=== PATIENT | female | born 1945 | race Two or more races ===

== ENCOUNTER 2020-06-23 12:17 | Inpatient (IN) | payer MEDICARE, OTHER ==
[2020-06-23] MEDS ORDERED: ACETAMINOPHEN TAB 500 MG TAB PO STA (13:13)
--- NOTE | 2020-06-23 13:20 | ED ---
Fever HPI - General Chief Complaint: Fever Stated Complaint: COVID testing Time Seen by Provider: 06/23/20 12:40 Source: patient, family, RN notes reviewed Mode of arrival: wheelchair Limitations: no limitations - History of Present Illness Initial Comments: 75-year-old female diagnosed with Covid 19 6 days ago who presents with complaints of chest pain shortness of breath cough perhaps some body aches. Negative better over time. History of a lung nodule recently. No other current complaints MD Complaint: fever, weakness, other - Related Data Allergies Allergy/AdvReac Type Severity Reaction Status Date / Time latex Allergy Rash/Hives Verified 06/23/20 12:35 Review of Systems ROS Statement: Those systems with pertinent positive or pertinent negative responses have been documented in the HPI. ROS Other: All systems not noted in ROS Statement are negative. Past Medical History Past Medical History: Cancer, CVA/TIA, Hypertension Additional Past Medical History / Comment(s): CKD Past Surgical History: Heart Catheterization With Stent Additional Past Surgical History / Comment(s): thyroid,PVD General Exam - General Exam Comments Initial Comments: this is a well-developed well-nourished awake alert oriented 3 female Limitations: no limitations General appearance: alert, anxious Head exam: Present: atraumatic, normocephalic, normal inspection Eye exam: Present: normal appearance, PERRL, EOMI. Absent: scleral icterus, conjunctival injection, periorbital swelling ENT exam: Present: normal exam, mucous membranes moist Neck exam: Present: normal inspection, full ROM, other (no stridor JVD or bruits). Absent: tenderness, meningismus, lymphadenopathy Respiratory exam: Present: normal lung sounds bilaterally. Absent: respiratory distress, wheezes, rales, rhonchi, stridor Cardiovascular Exam: Present: regular rate, normal rhythm, normal heart sounds. Absent: systolic murmur, diastolic murmur, rubs, gallop, clicks GI/Abdominal exam: Present: soft, normal bowel sounds. Absent: distended, tenderness, guarding, rebound, rigid Extremities exam: Present: normal inspection, full ROM, normal capillary refill. Absent: tenderness, pedal edema, joint swelling, calf tenderness Back exam: Present: normal inspection Neurological exam: Present: alert, oriented X3, CN II-XII intact Psychiatric exam: Present: normal affect, normal mood Skin exam: Present: warm, dry, intact, normal color. Absent: rash Course Vital Signs 06/23/20 06/23/20 12:30 14:16 Temperature 101.5 F H 99.8 F H Pulse Rate 70 70 Respiratory 18 18 Rate Blood Pressure 123/69 121/59 O2 Sat by Pulse 96 95 Oximetry Medical Decision Making - Medical Decision Making I did discuss findings with patient and family members patient will be admitted and family requested Dr. Curiel - Lab Data Result diagrams: 06/23/20 13:41 06/23/20 13:41 Lab Results 06/23/20 06/23/20 06/23/20 Range/Units 13:41 13:41 13:41 WBC 5.4 (3.8-10.6) k/uL RBC 5.22 (3.80-5.40) m/uL Hgb 14.7 (11.4-16.0) gm/dL Hct 45.1 (34.0-46.0) % MCV 86.3 (80.0-100.0) fL MCH 28.2 (25.0-35.0) pg MCHC 32.7 (31.0-37.0) g/dL RDW 13.8 (11.5-15.5) % Plt Count 259 (150-450) k/uL Neutrophils % 71 % Lymphocytes % 20 % Monocytes % 7 % Eosinophils % 0 % Basophils % 1 % Neutrophils # 3.8 (1.3-7.7) k/uL Lymphocytes # 1.1 (1.0-4.8) k/uL Monocytes # 0.4 (0-1.0) k/uL Eosinophils # 0.0 (0-0.7) k/uL Basophils # 0.0 (0-0.2) k/uL PT 9.4 (9.0-12.0) sec INR 0.9 (<1.2) APTT 22.2 (22.0-30.0) sec D-Dimer 0.34 (<0.60) mg/L FEU Sodium 140 (137-145) mmol/L Potassium 3.6 (3.5-5.1) mmol/L Chloride 101 (98-107) mmol/L Carbon Dioxide 29 (22-30) mmol/L Anion Gap 10 mmol/L BUN 15 (7-17) mg/dL Creatinine 0.62 (0.52-1.04) mg/dL Est GFR (CKD-EPI)AfAm >90 (>60 ml/min/1.73 sqM) Est GFR (CKD-EPI)NonAf 87 (>60 ml/min/1.73 sqM) Glucose 97 (74-99) mg/dL Plasma Lactic Acid Rex (0.7-2.0) mmol/L Calcium 9.5 (8.4-10.2) mg/dL Magnesium 2.0 (1.6-2.3) mg/dL Total Bilirubin 0.7 (0.2-1.3) mg/dL AST 29 (14-36) U/L ALT 19 (4-34) U/L Alkaline Phosphatase 62 (38-126) U/L Lactate Dehydrogenase 487 (313-618) U/L C-Reactive Protein 12.6 H (<10.0) mg/L Total Protein 7.4 (6.3-8.2) g/dL Albumin 4.3 (3.5-5.0) g/dL Influenza Type A RNA (Not Detectd) Influenza Type B (PCR) (Not Detectd) 06/23/20 06/23/20 Range/Units 13:41 13:56 WBC (3.8-10.6) k/uL RBC (3.80-5.40) m/uL Hgb (11.4-16.0) gm/dL Hct (34.0-46.0) % MCV (80.0-100.0) fL MCH (25.0-35.0) pg MCHC (31.0-37.0) g/dL RDW (11.5-15.5) % Plt Count (150-450) k/uL Neutrophils % % Lymphocytes % % Monocytes % % Eosinophils % % Basophils % % Neutrophils # (1.3-7.7) k/uL Lymphocytes # (1.0-4.8) k/uL Monocytes # (0-1.0) k/uL Eosinophils # (0-0.7) k/uL Basophils # (0-0.2) k/uL PT (9.0-12.0) sec INR (<1.2) APTT (22.0-30.0) sec D-Dimer (<0.60) mg/L FEU Sodium (137-145) mmol/L Potassium (3.5-5.1) mmol/L Chloride (98-107) mmol/L Carbon Dioxide (22-30) mmol/L Anion Gap mmol/L BUN (7-17) mg/dL Creatinine (0.52-1.04) mg/dL Est GFR (CKD-EPI)AfAm (>60 ml/min/1.73 sqM) Est GFR (CKD-EPI)NonAf (>60 ml/min/1.73 sqM) Glucose (74-99) mg/dL Plasma Lactic Acid Rex 1.6 (0.7-2.0) mmol/L Calcium (8.4-10.2) mg/dL Magnesium (1.6-2.3) mg/dL Total Bilirubin (0.2-1.3) mg/dL AST (14-36) U/L ALT (4-34) U/L Alkaline Phosphatase (38-126) U/L Lactate Dehydrogenase (313-618) U/L C-Reactive Protein (<10.0) mg/L Total Protein (6.3-8.2) g/dL Albumin (3.5-5.0) g/dL Influenza Type A RNA Not Detected (Not Detectd) Influenza Type B (PCR) Not Detected (Not Detectd) - EKG Data -: EKG Interpreted by Nh EKG shows normal: sinus rhythm, axis, intervals, QRS complexes, ST-T waves Rate: normal EKG Comments: Was sinus rhythm of 80. Interval 154 QRS 90 QT since QTC 344/[address]-T wave changes - Radiology Data Radiology results: report reviewed (Imaging reviewed evidence of a left lower lobe infiltrate versus atelectasis), image reviewed Disposition Clinical Impression: COVID-19, Left lower lobe pneumonia, Febrile illness, acute Disposition: ADMITTED IP TO THIS [facility] Condition: Fair Referrals: None,Stated [REFERRING] - 1-2 days
[2020-06-23 13:55] LABS: Basophils % (A) 1 %; Eosinophils % (A) 0 %; HCT 45.1 % (34.0-46.0); HGB 14.7 gm/dL (11.4-16.0); Lymphocytes # (A) 1.1 k/uL (1.0-4.8); Lymphocytes % (A) 20 %; MCH 28.2 pg (25.0-35.0); MCHC 32.7 g/dL (31.0-37.0); MCV 86.3 fL (80.0-100.0); Mean Platelet Volume 7.2; Monocytes # (A) 0.4 k/uL (0-1.0); Monocytes % (A) 7 %; Neutrophils # (A) 3.8 k/uL (1.3-7.7); Neutrophils % (A) 71 %; Platelet Count 259 k/uL (150-450); RBC 5.22 m/uL (3.80-5.40); RDW 13.8 % (11.5-15.5); WBC 5.4 k/uL (3.8-10.6)
[2020-06-23 14:09] LABS: D-Dimer 0.34 mg/L FEU (<0.60); INR 0.9 (<1.2); Partial Thromboplastin Time 22.2 sec (22.0-30.0); Prothrombin Time 9.4 sec (9.0-12.0)
[2020-06-23 14:17] LABS: ALT 19 U/L (4-34); AST 29 U/L (14-36); African American GFR (CKD) >90 (>60 ml/min/1.73 sqM); Albumin 4.3 g/dL (3.5-5.0); Alkaline Phosphatase 62 U/L (38-126); Anion Gap 10 mmol/L; Blood Urea Nitrogen 15 mg/dL (7-17); C Reactive Protein 12.6 mg/L (<10.0); Calcium 9.5 mg/dL (8.4-10.2); Carbon Dioxide 29 mmol/L (22-30); Chloride 101 mmol/L (98-107); Glucose 97 mg/dL (74-99); LDH 487 U/L (313-618); Non-African American GFR(CKD) 87 (>60 ml/min/1.73 sqM); Potassium 3.6 mmol/L (3.5-5.1); Sodium 140 mmol/L (137-145); Total Bilirubin 0.7 mg/dL (0.2-1.3); Total Protein 7.4 g/dL (6.3-8.2)
--- NOTE | 2020-06-23 14:20 | XR ---
EXAMINATION TYPE: XR chest 1V portable DATE OF EXAM: 06/23/2020 COMPARISON: NONE HISTORY: Cough, shortness of breath, and fever. TECHNIQUE: Single AP portable frontal upright view of the chest is obtained. FINDINGS: There is reticular interstitial prominence bilaterally with perhaps patchy left basilar op acity. No pleural effusion or pneumothorax seen bilaterally. The cardiac silhouette size is mildly e nlarged with atherosclerotic aorta. The osseous structures are demineralized. IMPRESSION: Cardiomegaly with suspected chronic parenchymal changes and perhaps patchy left basilar acute atelectasis and/or infiltrate. Correlate clinically. Correlation with old outside x-ray would b e beneficial.
[2020-06-23] MEDS ORDERED: ACETAMINOPHEN TAB 325 MG TAB PO PRN (14:52)
[2020-06-23] MEDS ORDERED: NALOXONE 0.4 MG/ML 1 ML VIAL IV PRN (14:52)
[2020-06-23] MEDS: SODIUM CHLORIDE 0.9% 1,000 ML IV SCH (15:08)
[2020-06-23] MEDS ORDERED: DEXAMETHASONE SOD PHOSPHATE 4 MG/ML 1 ML VIAL IV SCH (18:00)
[2020-06-23] MEDS ORDERED: dexAMETHasone 2 MG TAB PO SCH (18:15)
--- NOTE | 2020-06-23 18:21 | P.CNPUL ---
History of Present Illness Consult date: 06/23/20 Reason for consult: dyspnea, cough History of present illness: 75-year-old here patient with a previous history of thyroid cancer post-thyroidectomy was being also evaluated for left lower lobe pulmonary nodule. As the patient was being investigated she became sick and the patient started having sweats, chills, fever, body aches, and vague lower abdominal pain. Over the past 24-48 hours she started experiencing some chest aching, worsening dyspnea and cough and for that reason the patient was brought into the hospital. Noted the patient was confirmed to have COVID 19 infection approximately 6 days ago. White cell count is at 5.4. He will was 14.7. Correlation profile is within normal. D-dimer is at 0.34. Renal function is stable. C-reactive protein at 12.6. Chest x-ray showing a limited left basilar infiltrate along with some cardiomegaly. Pulse ox on room air is around 95-96%. She has a temperature of 101.5. Review of Systems Constitutional: Reports chills, Reports fatigue, Reports fever, Reports night sweats Eyes: denies as per HPI, denies blurred vision, denies bulging eye, denies decreased vision, denies diplopia, denies discharge, denies dry eye, denies irritation, denies itching, denies pain, denies photophobia, denies loss of peripheral vision, denies loss of vision, denies tunnel vision/blind spots Ears: deny: decreased hearing, ear discharge, earache, tinnitus Ears, nose, mouth and throat: Reports as per HPI Breasts: absent: as per HPI, change in shape, gynecomastia, masses, nipple discharge, pain, skin changes, swelling Cardiovascular: Reports dyspnea on exertion Respiratory: Reports cough, Reports dyspnea Gastrointestinal: Reports as per HPI Genitourinary: Reports as per HPI Menstruation: Reports as per HPI Musculoskeletal: Reports as per HPI Musculoskeletal: absent: ankle pain, ankle stiffness, ankle swelling Integumentary: Reports as per HPI Neurological: Reports as per HPI, Reports weakness Psychiatric: Reports as per HPI Endocrine: Reports as per HPI, Reports fatigue Hematologic/Lymphatic: Reports as per HPI Allergic/Immunologic: Reports as per HPI Past Medical History Past Medical History: Cancer, GERD/Reflux, Hyperlipidemia, Hypertension, Osteoarthritis (OA) Additional Past Medical History / Comment(s): Thyroid cancer with surgery, vertigo at times, arthritis in multiple joints History of Any Multi-Drug Resistant Organisms: None Reported Past Surgical History: Appendectomy, Cholecystectomy, Hysterectomy Additional Past Surgical History / Comment(s): Thyroidectomy, colonoscopy, bilateral cataracts/lens implants. Past Anesthesia/Blood Transfusion Reactions: No Reported Reaction Smoking Status: Never smoker - Past Family History Father Family Medical History: No Reported History Additional Family Medical History / Comment(s): Father was healthy Mother Additional Family Medical History / Comment(s): Mother young from surgical complications. Medications and Allergies Home Medications Medication Instructions Recorded Confirmed Type Diclofenac Sodium Gel [Voltaren 2 gm TOPICAL BID PRN 06/23/20 06/23/20 History Gel] Dicyclomine [Bentyl] 10 mg PO AC-BID PRN 06/23/20 06/23/20 History Fluticasone Nasal [place] [Flonase 2 spr EA NOSTRIL DAILY PRN 06/23/20 06/23/20 History Nasal [place]] Hydrocortisone [Anusol-Hc] 0.5 gm RECTAL BID PRN 06/23/20 06/23/20 History Levothyroxine Sodium 100 mcg PO DAILY 06/23/20 06/23/20 History Omeprazole 20 mg PO DAILY 06/23/20 06/23/20 History Rosuvastatin [Crestor] 10 mg PO HS 06/23/20 06/23/20 History amLODIPine [Norvasc] 10 mg PO DAILY 06/23/20 06/23/20 History Allergies Allergy/AdvReac Type Severity Reaction Status Date / Time latex Allergy Rash/Hives Verified 06/23/20 15:09 Physical Exam Vitals: Vital Signs Temp Pulse Resp BP Pulse Ox 06/23/20 14:16 99.8 F H 70 18 121/59 95 06/23/20 12:30 101.5 F H 70 18 123/69 96 Intake and Output 06/23/20 06/23/20 06/23/20 06:59 14:59 22:59 Other: Weight 92.533 kg 92.533 kg The patient appeared well nourished and normally developed. Vital signs as documented. Head exam is unremarkable. No scleral icterus or corneal arcus noted. Neck is without jugular venous distension, thyromegaly, or carotid bruits. Carotid upstrokes are brisk bilaterally. Lungs are clear to auscultation and percussion. Cardiac exam reveals the PMI to be normally sized and situated. Rhythm is regular. First and second heart sounds normal. No murmurs, rubs or gallops. Abdominal exam reveals normal bowel sounds, no masses, no organomegaly and no aortic enlargement. Extremities are nonedematous and both femoral and pedal pulses are normal.Neurologically, the patient is awake and alert and the patient does not have any focal neurological deficit. Cranial nerves are essentially intact.Examination of the skin revealed no evidence of significant rashes, suspicious appearing nevi or other concerning lesions. Results - Laboratory Findings CBC and BMP: 06/23/20 13:41 06/23/20 13:41 PT/INR, D-dimer PT 9.4 sec (9.0-12.0) 06/23/20 13:41 INR 0.9 (<1.2) 06/23/20 13:41 D-Dimer 0.34 mg/L FEU (<0.60) 06/23/20 13:41 Abnormal lab findings: Abnormal Labs 06/23/20 13:41 C-Reactive Protein 12.6 H - Diagnostic Findings Chest x-ray: image reviewed Assessment and Plan Plan: 1 acute Covid 19 pneumonia with secondary dyspnea cough 2 acute hypoxic respiratory failure current pulse ox is around 95-96% 3 acute febrile illness secondary to above 4 hypothyroidism 5 hypertension 6 hyperlipidemia 7 osteoarthritis 8 thyroid cancer and previous thyroidectomy 9 left lower lobe pulmonary nodules, under investigation for metastatic disease Plan We will initiate treatment with melatonin, Pepcid, zinc sulfate, we will offer Lovenox DVT prophylaxis with 40 mg subcu heparin and will put the patient on Decadron 6mg by mouth daily in addition to 5 day course of Remdesivir per protocol and will continue to follow. Overall condition is stable for now. IV hydration. Resume home medications.
[2020-06-23] MEDS ORDERED: dexAMETHasone 2 MG TAB PO ONE (19:00)
[2020-06-23] MEDS ORDERED: REMDESIVIR (EUA) 200 MG in SODIUM CHLORIDE 0.9% 250 ML IVPB ONE (20:00)
[2020-06-23] MEDS: ZINC SULFATE 220 MG CAP PO SCH (20:46)
[2020-06-23] MEDS: ATORVASTATIN 20 MG TAB PO SCH (20:46)
[2020-06-23] MEDS: ASCORBIC ACID 500 MG TAB PO SCH (20:47)
[2020-06-23] MEDS: ENOXAPARIN 40 MG/0.4 ML SYRINGE SQ SCH (20:47)
[2020-06-23] MEDS: MELATONIN 1 MG TAB PO SCH (20:48)
[2020-06-23 23:02] LABS: Ferritin 108.5 ng/mL (10.0-291.0)
[2020-06-24] MEDS: SODIUM CHLORIDE 0.9% 1,000 ML IV SCH ×2 (03:32→16:12)
[2020-06-24] MEDS: LEVOTHYROXINE 100 MCG TAB PO SCH (05:33)
[2020-06-24 06:28] LABS: Basophils % (A) 1 %; Eosinophils % (A) 0 %; HCT 45.2 % (34.0-46.0); HGB 14.4 gm/dL (11.4-16.0); Lymphocytes # (A) 0.8 k/uL (1.0-4.8); Lymphocytes % (A) 28 %; MCHC 31.8 g/dL (31.0-37.0); Mean Platelet Volume 7.3; Monocytes # (A) 0.1 k/uL (0-1.0); Monocytes % (A) 3 %; Neutrophils # (A) 1.8 k/uL (1.3-7.7); Neutrophils % (A) 67 %; Platelet Count 241 k/uL (150-450); RBC 5.14 m/uL (3.80-5.40); RDW 13.8 % (11.5-15.5); WBC 2.7 k/uL (3.8-10.6)
[2020-06-24 07:07] LABS: D-Dimer 0.38 mg/L FEU (<0.60)
[2020-06-24] MEDS: PANTOPRAZOLE 40 MG TABLET PO SCH (08:48)
[2020-06-24] MEDS: ASCORBIC ACID 500 MG TAB PO SCH (08:48)
[2020-06-24] MEDS: ENOXAPARIN 40 MG/0.4 ML SYRINGE SQ SCH (08:48)
[2020-06-24] MEDS: dexAMETHasone 2 MG TAB PO SCH (08:49)
[2020-06-24] MEDS: ZINC SULFATE 220 MG CAP PO SCH (08:49)
[2020-06-24 09:50] LABS: African American GFR (CKD) 101.9 (60.0-200.0); Albumin 4.1 g/dL (3.80-4.90); Albumin/Globulin Ratio 1.95 (1.60-3.17); Anion Gap 11.5 mmol/L (4.00-12.00); C Reactive Protein 2.7 mg/dL (0.0-0.8); Calcium 8.8 mg/dL (8.7-10.3); Carbon Dioxide 22.5 mmol/L (21.6-31.8); Globulin 2.1 g/dL (1.6-3.3); Non-African American GFR(CKD) 87.9 (60.0-200.0); Potassium 4.7 mmol/L (3.5-5.5); Total Bilirubin 0.5 mg/dL (0.3-1.2); Total Protein 6.2 g/dL (6.2-8.2)
[2020-06-24 12:17] LABS: Appearance,Urine Clear (Clear); Bilirubin,Urine Negative (Negative); Blood,Urine Negative (Negative); Color,Urine Light Yellow; Glucose,Urine (UA) Negative (Negative); Ketones,Urine Negative (Negative); Leukocyte Esterase,Urine Negative (Negative); Nitrite,Urine Negative (Negative); Protein,Urine Trace (Negative); Specific Gravity,Urine 1.014 (1.001-1.035); Urobilinogen,Urine <2.0 mg/dL (<2.0)
--- NOTE | 2020-06-24 14:08 | P.PN ---
Subjective Progress Note Date: 06/24/20 Principal diagnosis: CoVID 19 pneumonitis 75-year-old here patient with a previous history of thyroid cancer post- thyroidectomy was being also evaluated for left lower lobe pulmonary nodule. As the patient was being investigated she became sick and the patient started having sweats, chills, fever, body aches, and vague lower abdominal pain. Over the past 24-48 hours she started experiencing some chest aching, worsening dyspnea and cough and for that reason the patient was brought into the hospital. Noted the patient was confirmed to have COVID 19 infection approximately 6 days ago. White cell count is at 5.4. He will was 14.7. Correlation profile is within normal. D-dimer is at 0.34. Renal function is stable. C-reactive protein at 12.6. Chest x-ray showing a limited left basilar infiltrate along with some cardiomegaly. Pulse ox on room air is around 95-96%. She has a temperature of 101.5. The patient is seen today 06/24/2020 in follow-up on the regular medical floor. She is currently resting quite comfortably in bed. Awake and alert in no acute distress. She is maintaining O2 saturations in the 90s on room air. She's afebrile. Hemodynamically stable. White count 2.7. Hemoglobin 14.4. D-dimer 0.3. Sodium 141. Potassium 4.7. Creatinine 0.6. Glucose 126. C-reactive protein 2.7. This is day 2 of Remdesivir. She remains on zinc, Protonix, vitamin C, Lovenox, dexamethasone, melatonin. Objective - Vital Signs Vital signs: Vital Signs Temp 98.5 F 06/24/20 07:00 Pulse 66 06/24/20 07:00 Resp 17 06/24/20 07:00 BP 123/69 06/24/20 07:00 Pulse Ox 94 L 06/24/20 07:00 Intake & Output 06/23/20 06/24/20 06/24/20 18:59 06:59 18:59 Weight 92.533 kg Other: # Voids 1 - Exam GENERAL EXAM: Alert, active, comfortable in no apparent distress. HEAD: Normocephalic. EYES: Normal reaction of pupils, equal size. NOSE: Clear with pink turbinates. THROAT: No erythema or exudates. NECK: No masses, no JVD. CHEST: No chest wall deformity. LUNGS: Equal air entry with crackles in the left base, diminished CVS: S1 and S2 normal with no audible murmur, regular rhythm. ABDOMEN: No hepatosplenomegaly, normal bowel sounds, no guarding or rigidity. SPINE: No scoliosis or deformity SKIN: No rashes CENTRAL NERVOUS SYSTEM: No focal deficits, tone is normal in all 4 extremities. EXTREMITIES: There is no peripheral edema. No clubbing, no cyanosis. Peripheral pulses are intact. - Labs CBC & Chem 7: 06/24/20 05:31 06/24/20 05:31 Labs: Abnormal Lab Results - Last 24 Hours (Table) 06/23/20 06/23/20 06/24/20 Range/Units 13:41 13:41 05:31 WBC 2.7 L (3.8-10.6) k/uL Lymphocytes # 0.8 L (1.0-4.8) k/uL Glucose (70-110) mg/dL C-Reactive Protein 12.6 H (<10.0) mg/L Urine Protein (Negative) Coronavirus (PCR) Detected H (Not Detected) 06/24/20 06/24/20 Range/Units 05:31 11:59 WBC (3.8-10.6) k/uL Lymphocytes # (1.0-4.8) k/uL Glucose 126 H (70-110) mg/dL C-Reactive Protein 2.7 H (<10.0) mg/L Urine Protein Trace H (Negative) Coronavirus (PCR) (Not Detected) Assessment and Plan Assessment: 1 acute Covid 19 pneumonia with secondary dyspnea cough 2 acute hypoxic respiratory failure current pulse ox is around 994-95% 3 acute febrile illness secondary to above 4 hypothyroidism 5 hypertension 6 hyperlipidemia 7 osteoarthritis 8 thyroid cancer and previous thyroidectomy 9 left lower lobe pulmonary nodules, under investigation for metastatic disease Plan The patient was seen and evaluated by Dr. Pool Continue Remdesivir Continue vitamin C, dexamethasone, Lovenox, melatonin, Pepcid, zinc Continue isolation precautions We will continue to follow I, the cosigning physician, performed a history & physical examination of the patient. Lungs sounds with crackles in the left base, diminished. Maintaining good O2 saturations in the 90s on room air. I discussed the assessment and plan of care with my nurse practitioner, Yvette Hayes. I attest to the above note as dictated by her.
[2020-06-24] MEDS: ATORVASTATIN 20 MG TAB PO SCH (20:58)
[2020-06-24] MEDS: REMDESIVIR (EUA) 100 MG in SODIUM CHLORIDE 0.9% 250 ML IVPB SCH (20:58)
[2020-06-24] MEDS: MELATONIN 1 MG TAB PO SCH (20:58)
--- NOTE | 2020-06-24 22:30 | P.HPIM ---
History of Present Illness H&P Date: 06/24/20 Chief Complaint: fever Guerda Cheek is a 75-year-old F with history thyroid cancer s/p thyroidectomy as well as recently noted L lower lobe pulmonary nodule. Pt complains of worsening fever, chills, sweats, malaise and lower abdominal pain over the past week. More recently she started experiencing some chest aching, worsening dyspnea and cough. She was confirmed to have COVID 19 as an outpatient and when she worsened was brought in. On presentation she was febrile and hypoxic at 93% on RA. WBC 5k, D-dimer is at 0.34. Renal function is stable. C-reactive protein at 12.6. Chest x-ray showing a limited left basilar infiltrate along with some cardiomegaly. Review of Systems All systems: negative Constitutional: Reports fever, Reports malaise, Reports sweats, Reports weakness, Denies chills Eyes: denies blurred vision, denies pain Ears, nose, mouth and throat: Denies headache, Denies sore throat Cardiovascular: Denies chest pain, Denies shortness of breath Respiratory: Reports cough, Reports dyspnea Gastrointestinal: Denies abdominal pain, Denies diarrhea, Denies nausea, Denies vomiting Genitourinary: Denies dysuria, Denies hematuria Musculoskeletal: Denies myalgias Integumentary: Denies pruritus, Denies rash Neurological: Denies numbness, Denies weakness Psychiatric: Denies anxiety, Denies depression Endocrine: Denies fatigue, Denies weight change Past Medical History Past Medical History: Cancer, GERD/Reflux, Hyperlipidemia, Hypertension, Osteoarthritis (OA) Additional Past Medical History / Comment(s): Thyroid cancer with surgery, vertigo at times, arthritis in multiple joints History of Any Multi-Drug Resistant Organisms: None Reported Past Surgical History: Appendectomy, Cholecystectomy, Hysterectomy Additional Past Surgical History / Comment(s): Thyroidectomy, colonoscopy, bilateral cataracts/lens implants. Past Anesthesia/Blood Transfusion Reactions: No Reported Reaction Smoking Status: Never smoker - Past Family History Father Family Medical History: No Reported History Additional Family Medical History / Comment(s): Father was healthy Mother Additional Family Medical History / Comment(s): Mother young from surgical complications. Medications and Allergies Home Medications Medication Instructions Recorded Confirmed Type Diclofenac Sodium Gel [Voltaren 2 gm TOPICAL BID PRN 06/23/20 06/23/20 History Gel] Dicyclomine [Bentyl] 10 mg PO AC-BID PRN 06/23/20 06/23/20 History Fluticasone Nasal [place] [Flonase 2 spr EA NOSTRIL DAILY PRN 06/23/20 06/23/20 History Nasal [place]] Hydrocortisone [Anusol-Hc] 0.5 gm RECTAL BID PRN 06/23/20 06/23/20 History Levothyroxine Sodium 100 mcg PO DAILY 06/23/20 06/23/20 History Omeprazole 20 mg PO DAILY 06/23/20 06/23/20 History Rosuvastatin [Crestor] 10 mg PO HS 06/23/20 06/23/20 History amLODIPine [Norvasc] 10 mg PO DAILY 06/23/20 06/23/20 History Allergies Allergy/AdvReac Type Severity Reaction Status Date / Time latex Allergy Rash/Hives Verified 06/23/20 15:09 Physical Exam Vitals: Vital Signs Temp Pulse Resp BP Pulse Ox 06/24/20 19:34 17 06/24/20 18:53 97.8 F 71 14 129/60 95 06/24/20 14:13 98.2 F 67 17 125/68 92 L 06/24/20 07:00 98.5 F 66 17 123/69 94 L 06/24/20 04:00 70 16 06/24/20 01:30 98.4 F 70 16 136/63 95 06/24/20 00:00 66 15 Intake and Output 06/24/20 06/24/20 06/24/20 06:59 14:59 22:59 Intake Total 410 Balance 410 Intake: Intake, IV Titration 410 Amount Remdesivir (Eua) 100 mg 250 In Sodium Chloride 0.9% 250 ml @ 250 mls/hr IVPB DAILY@2000 [facility] Rx#: [id number] Sodium Chloride 0.9% 1, 160 000 ml @ 80 mls/hr IV . [id number] [facility] Rx#:[id number] Other: Voiding Method Toilet # Voids 1 3 1 General: well nourished, well developed, NAD. Vitals reviewed Eyes: PERRL, EOMI, conjunctiva normal HENT: normocephalic, mucus membranes moist Neck: supple, no JVD Lungs: normal respiratory effort. Rhonchi bilaterally. No rales CV: Regular rate and rhythm, no murmur. Peripheral pulses 2+ Abdomen: soft, nondistended, no organomegaly Lymph: no cervical or axillary LAD Skin: warm and dry. Neuro: A&Ox3, normal mood and affect Results CBC & Chem 7: 06/24/20 05:31 06/24/20 05:31 Labs: Abnormal Lab Results - Last 24 Hours (Table) 06/23/20 06/24/20 06/24/20 Range/Units 13:41 05:31 05:31 WBC 2.7 L (3.8-10.6) k/uL Lymphocytes # 0.8 L (1.0-4.8) k/uL Glucose 126 H (70-110) mg/dL C-Reactive Protein 2.7 H (0.0-0.8) mg/dL Urine Protein (Negative) Coronavirus (PCR) Detected H (Not Detected) 06/24/20 Range/Units 11:59 WBC (3.8-10.6) k/uL Lymphocytes # (1.0-4.8) k/uL Glucose (70-110) mg/dL C-Reactive Protein (0.0-0.8) mg/dL Urine Protein Trace H (Negative) Coronavirus (PCR) (Not Detected) Microbiology - Last 24 Hours (Table) 06/23/20 13:41 Blood Culture - Preliminary Blood No Growth after 24 hours Thrombosis Risk Factor Assmnt - Choose All That Apply Any of the Below Risk Factors Present?: Yes Each Factor Represents 1 point: Obesity (BMI >25), Serious lung disease incl. pneumonia (< 1month) Other Risk Factors: Yes Each Risk Factor Represents 2 Points: Malignancy Each Risk Factor Represents 3 Points: Age 75 years or older Other congenital or acquired thrombophilia - If yes, enter type in comment: No Thrombosis Risk Factor Assessment Total Risk Factor Score: 7 Thrombosis Risk Factor Assessment Level: High Risk Assessment and Plan (1) Viral pneumonia Current Visit: Yes Status: Acute Code(s): J12.9 - VIRAL PNEUMONIA, UNSPECIFI ED SNOMED Code(s): 84978533 (2) Sepsis due to COVID-19 Current Visit: Yes Status: Acute Code(s): U07.1 - COVID-19; A41.89 - OTHER SPECIFIED SEPSIS SNOMED Code(s): 973046787 (3) COVID-19 Current Visit: Yes Status: Acute Code(s): U07.1 - COVID-19 SNOMED Code(s): 842041281 Plan: 1. Sepsis due to COVID 19. Pulmonary consult. Start decadron and remdesivir. Continue with zinc, melatonin, vitamin C. Lovenox for DVT prophylaxis 2. Hypothyroid. continue synthroid
[2020-06-25] MEDS: LEVOTHYROXINE 100 MCG TAB PO SCH (06:05)
[2020-06-25 06:42] LABS: Basophils % (A) 1 %; Eosinophils % (A) 0 %; HGB 14.6 gm/dL (11.4-16.0); Lymphocytes # (A) 1.2 k/uL (1.0-4.8); Lymphocytes % (A) 25 %; MCH 27.8 pg (25.0-35.0); MCHC 31.7 g/dL (31.0-37.0); MCV 87.6 fL (80.0-100.0); Mean Platelet Volume 7.3; Monocytes # (A) 0.3 k/uL (0-1.0); Monocytes % (A) 8 %; Neutrophils # (A) 2.9 k/uL (1.3-7.7); Neutrophils % (A) 65 %; Platelet Count 307 k/uL (150-450); RBC 5.25 m/uL (3.80-5.40); RDW 13.8 % (11.5-15.5); WBC 4.6 k/uL (3.8-10.6)
[2020-06-25 06:49] LABS: D-Dimer 0.29 mg/L FEU (<0.60)
[2020-06-25] MEDS: ASCORBIC ACID 500 MG TAB PO SCH (08:02)
[2020-06-25] MEDS: PANTOPRAZOLE 40 MG TABLET PO SCH (08:02)
[2020-06-25] MEDS: ENOXAPARIN 40 MG/0.4 ML SYRINGE SQ SCH (08:02)
[2020-06-25] MEDS: dexAMETHasone 2 MG TAB PO SCH (08:02)
[2020-06-25] MEDS: ZINC SULFATE 220 MG CAP PO SCH (08:02)
[2020-06-25 09:38] LABS: African American GFR (CKD) 101.9 (60.0-200.0); Albumin 4.2 g/dL (3.80-4.90); Calcium 9.3 mg/dL (8.7-10.3); Globulin 2.1 g/dL (1.6-3.3); Non-African American GFR(CKD) 87.9 (60.0-200.0); Potassium 4.2 mmol/L (3.5-5.5); Total Bilirubin 0.5 mg/dL (0.3-1.2); Total Protein 6.3 g/dL (6.2-8.2)
--- NOTE | 2020-06-25 13:20 | P.PN ---
Subjective Progress Note Date: 06/25/20 Guerda Cheek is a 75-year-old F with history thyroid cancer s/p thyroidectomy as well as recently noted L lower lobe pulmonary nodule. Pt complains of worsening fever, chills, sweats, malaise and lower abdominal pain over the past week. More recently she started experiencing some chest aching, worsening dyspnea and cough. She was confirmed to have COVID 19 as an outpatient and when she worsened was brought in. On presentation she was febrile and hypoxic at 93% on RA. WBC 5k, D-dimer is at 0.34. Renal function is stable. C-reactive protein at 12.6. Chest x-ray showing a limited left basilar infiltrate along with some cardiomegaly. 06/25/2020 Continues on Remdesivir, zinc, Protonix, vitamin C, Decadron with significant clinical improvement. Maintaining O2 sats in the mid 90s on room air. Denies chest pain, palpitations or shortness of breath. Reports occasional cough. UA negative. Afebrile, normal WBC. Preliminary blood cultures no growth at 24 hours.D-dimer down to 0.29 as well as CRP down to 1. Blood sugars controlled. Objective - Vital Signs Vital signs: Vital Signs Temp 98.2 F 06/25/20 07:00 Pulse 72 06/25/20 07:00 Resp 17 06/25/20 07:00 BP 122/63 06/25/20 07:00 Pulse Ox 96 06/25/20 07:00 Intake & Output 06/24/20 06/25/20 06/25/20 18:59 06:59 18:59 Intake Total 570 Balance 570 Intake: Intake, IV Titration 570 Amount Remdesivir (Eua) 100 mg 250 In Sodium Chloride 0.9% 250 ml @ 250 mls/hr IVPB DAILY@2000 [facility] Rx#: [id number] Sodium Chloride 0.9% 1, 320 000 ml @ 80 mls/hr IV . [id number] JM Rx#:[id number] Other: Voiding Method Toilet # Voids 3 2 - Exam General: well nourished, well developed, NAD. Vitals reviewed Eyes: PERRL, EOMI, conjunctiva normal HENT: normocephalic, mucus membranes moist Neck: supple, no JVD Lungs: normal respiratory effort. Essentially clear, bilateral bases diminished. CV: Regular rate and rhythm, no murmur. Peripheral pulses 2+ Abdomen: soft, nondistended, no organomegaly Lymph: no cervical or axillary LAD Skin: warm and dry. Neuro: A&Ox3, normal mood and affect - Labs CBC & Chem 7: 06/25/20 05:32 06/25/20 05:32 Labs: Abnormal Lab Results - Last 24 Hours (Table) 06/25/20 Range/Units 05:32 BUN/Creatinine Ratio 25.00 H (12.00-20.00) Ratio C-Reactive Protein 1.0 H (0.0-0.8) mg/dL Microbiology - Last 24 Hours (Table) 06/23/20 13:41 Blood Culture - Preliminary Blood No Growth after 24 hours Assessment and Plan Assessment: Sepsis secondary to acute Covid 19,Viral pneumonia Acute hypoxic respiratory failure secondary to the above, resolved Left lower lobe pulmonary nodules, being followed outpatient History of Thyroid cancer with thyroidectomy Osteoarthritis Hypothyroidism Hypertension Hyperlipidemia Plan: Continue on current medication regime ,monitoring and symptomatic treatment. Maintain Remdesivir, zinc, Protonix, vitamin C, Decadron. Increase ambulation as tolerated. Discharge planning in progress pending completion of Remdesivir. The impression and plan of care has been dictated as directed. : I performed a history and examination of this patient, discussed the same with the dictator. I agree with the dictator's note ,documented as a scribe. Any additional findings or plans will be noted.
--- NOTE | 2020-06-25 13:41 | P.PN ---
Subjective Progress Note Date: 06/25/20 Principal diagnosis: CoVID 19 pneumonitis 75-year-old here patient with a previous history of thyroid cancer post- thyroidectomy was being also evaluated for left lower lobe pulmonary nodule. As the patient was being investigated she became sick and the patient started having sweats, chills, fever, body aches, and vague lower abdominal pain. Over the past 24-48 hours she started experiencing some chest aching, worsening dyspnea and cough and for that reason the patient was brought into the hospital. Noted the patient was confirmed to have COVID 19 infection approximately 6 days ago. White cell count is at 5.4. He will was 14.7. Correlation profile is within normal. D-dimer is at 0.34. Renal function is stable. C-reactive protein at 12.6. Chest x-ray showing a limited left basilar infiltrate along with some cardiomegaly. Pulse ox on room air is around 95-96%. She has a temperature of 101.5. The patient is seen today 06/24/2020 in follow-up on the regular medical floor. She is currently resting quite comfortably in bed. Awake and alert in no acute distress. She is maintaining O2 saturations in the 90s on room air. She's afebrile. Hemodynamically stable. White count 2.7. Hemoglobin 14.4. D-dimer 0.3. Sodium 141. Potassium 4.7. Creatinine 0.6. Glucose 126. C-reactive protein 2.7. This is day 2 of Remdesivir. She remains on zinc, Protonix, vitamin C, Lovenox, dexamethasone, melatonin. The patient is seen today 06/25/2020 in follow-up on the regular medical floor. She is awake and alert in no acute distress. Resting quite comfortably in bed. Denies any worsening shortness of breath, cough or congestion. Maintaining good O2 saturations in the mid 90s on room air. She's afebrile. Hemodynamically stable. Blood culture reveals no growth to date. White count 4.6. Hemoglobin 14.6. Lymphocytes 1.2. D-dimer 0.29. Sodium 144. Potassium 4.2. Creatinine 0.6. This is day 3 of REM to severe. She remains on zinc, Protonix, vitamin C, Lovenox, dexamethasone, melatonin. Objective - Vital Signs Vital signs: Vital Signs Temp 98.2 F 1029/20 07:00 Pulse 72 06/25/20 07:00 Resp 17 06/25/20 07:00 BP 122/63 06/25/20 07:00 Pulse Ox 96 06/25/20 07:00 Intake & Output 06/24/20 06/25/20 06/25/20 18:59 06:59 18:59 Intake Total 570 Balance 570 Intake: Intake, IV Titration 570 Amount Remdesivir (Eua) 100 mg 250 In Sodium Chloride 0.9% 250 ml @ 250 mls/hr IVPB DAILY@2000 [facility] Rx#: [id number] Sodium Chloride 0.9% 1, 320 000 ml @ 80 mls/hr IV . [id number] JM Rx#:[id number] Other: Voiding Method Toilet # Voids 3 2 - Exam GENERAL EXAM: Alert, active, very pleasant 75-year-old female patient, on room air, comfortable in no apparent distress. HEAD: Normocephalic. EYES: Normal reaction of pupils, equal size. NOSE: Clear with pink turbinates. THROAT: No erythema or exudates. NECK: No masses, no JVD. CHEST: No chest wall deformity. LUNGS: Equal air entry with crackles in the left base, diminished CVS: S1 and S2 normal with no audible murmur, regular rhythm. ABDOMEN: No hepatosplenomegaly, normal bowel sounds, no guarding or rigidity. SPINE: No scoliosis or deformity SKIN: No rashes CENTRAL NERVOUS SYSTEM: No focal deficits, tone is normal in all 4 extremities. EXTREMITIES: There is no peripheral edema. No clubbing, no cyanosis. Peripheral pulses are intact. - Labs CBC & Chem 7: 06/25/20 05:32 06/25/20 05:32 Labs: Abnormal Lab Results - Last 24 Hours (Table) 06/25/20 Range/Units 05:32 BUN/Creatinine Ratio 25.00 H (12.00-20.00) Ratio C-Reactive Protein 1.0 H (0.0-0.8) mg/dL Microbiology - Last 24 Hours (Table) 06/23/20 13:41 Blood Culture - Preliminary Blood No Growth after 24 hours Assessment and Plan Assessment: 1 acute Covid 19 pneumonia with secondary dyspnea cough 2 acute hypoxic respiratory failure current pulse ox is around 994-95% 3 acute febrile illness secondary to above 4 hypothyroidism 5 hypertension 6 hyperlipidemia 7 osteoarthritis 8 thyroid cancer and previous thyroidectomy 9 left lower lobe pulmonary nodules, under investigation for metastatic disease Plan The patient was seen and evaluated by Dr. Pool Continue Remdesivir Continue vitamin C, dexamethasone, Lovenox, melatonin, Pepcid, zinc Continue isolation precautions We will continue to follow I, the cosigning physician, performed a history & physical examination of the patient. Lungs sounds with crackles in the left base, diminished. Maintaining good O2 saturations in the 90s on room air. I discussed the assessment and plan of care with my nurse practitioner, Yvette Hayes. I attest to the above note as dictated by her.
[2020-06-25] MEDS: ATORVASTATIN 20 MG TAB PO SCH (20:39)
[2020-06-25] MEDS: MELATONIN 1 MG TAB PO SCH (20:39)
[2020-06-25] MEDS: REMDESIVIR (EUA) 100 MG in SODIUM CHLORIDE 0.9% 250 ML IVPB SCH (20:39)
[2020-06-26] MEDS: LEVOTHYROXINE 100 MCG TAB PO SCH (05:24)
[2020-06-26 06:18] LABS: Basophils % (A) 1 %; Eosinophils % (A) 0 %; HCT 46.1 % (34.0-46.0); HGB 14.7 gm/dL (11.4-16.0); Lymphocytes # (A) 1.5 k/uL (1.0-4.8); Lymphocytes % (A) 24 %; MCH 27.9 pg (25.0-35.0); MCV 87.1 fL (80.0-100.0); Mean Platelet Volume 7.3; Monocytes # (A) 0.4 k/uL (0-1.0); Monocytes % (A) 6 %; Neutrophils # (A) 4.2 k/uL (1.3-7.7); Neutrophils % (A) 67 %; Platelet Count 307 k/uL (150-450); RBC 5.29 m/uL (3.80-5.40); RDW 13.9 % (11.5-15.5); WBC 6.2 k/uL (3.8-10.6)
[2020-06-26 06:47] LABS: D-Dimer 0.3 mg/L FEU (<0.60)
[2020-06-26] MEDS: ASCORBIC ACID 500 MG TAB PO SCH (07:56)
[2020-06-26] MEDS: ZINC SULFATE 220 MG CAP PO SCH (07:56)
[2020-06-26] MEDS: dexAMETHasone 2 MG TAB PO SCH (07:56)
[2020-06-26] MEDS: ENOXAPARIN 40 MG/0.4 ML SYRINGE SQ SCH (07:56)
[2020-06-26] MEDS: PANTOPRAZOLE 40 MG TABLET PO SCH (07:56)
[2020-06-26 10:08] LABS: African American GFR (CKD) 101.9 (60.0-200.0); Albumin/Globulin Ratio 2.11 (1.60-3.17); Anion Gap 10.8 mmol/L (4.00-12.00); C Reactive Protein 0.5 mg/dL (0.0-0.8); Carbon Dioxide 24.2 mmol/L (21.6-31.8); Globulin 1.9 g/dL (1.6-3.3); Non-African American GFR(CKD) 87.9 (60.0-200.0); Total Bilirubin 0.6 mg/dL (0.3-1.2); Total Protein 5.9 g/dL (6.2-8.2)
--- NOTE | 2020-06-26 14:16 | P.PN ---
Subjective Progress Note Date: 06/26/20 Guerda Cheek is a 75-year-old F with history thyroid cancer s/p thyroidectomy as well as recently noted L lower lobe pulmonary nodule. Pt complains of worsening fever, chills, sweats, malaise and lower abdominal pain over the past week. More recently she started experiencing some chest aching, worsening dyspnea and cough. She was confirmed to have COVID 19 as an outpatient and when she worsened was brought in. On presentation she was febrile and hypoxic at 93% on RA. WBC 5k, D-dimer is at 0.34. Renal function is stable. C-reactive protein at 12.6. Chest x-ray showing a limited left basilar infiltrate along with some cardiomegaly. 06/25/2020 Continues on Remdesivir, zinc, Protonix, vitamin C, Decadron with significant clinical improvement. Maintaining O2 sats in the mid 90s on room air. Denies chest pain, palpitations or shortness of breath. Reports occasional cough. UA negative. Afebrile, normal WBC. Preliminary blood cultures no growth at 24 hours.D-dimer down to 0.29 as well as CRP down to 1. Blood sugars controlled. 06/26/2020 maintaining O2 sats in the mid 90s on room air, occasional nonproductive cough, on Covid regimen including Remdesivir. Denies chest pain, palpitations or increasing shortness of breath. Afebrile, normal WBC. INR 0.3, creatinine kinase 40, CRP 0.5. Objective - Vital Signs Vital signs: Vital Signs Temp 98.3 F 06/26/20 14:01 Pulse 89 06/26/20 14:01 Resp 17 06/26/20 14:01 BP 144/64 06/26/20 14:01 Pulse Ox 95 06/26/20 14:01 Intake & Output 06/25/20 06/26/20 06/26/20 18:59 06:59 18:59 Intake Total 850 Balance 850 Intake: Intake, IV Titration 250 Amount Remdesivir (Eua) 100 mg 250 In Sodium Chloride 0.9% 250 ml @ 250 mls/hr IVPB DAILY@1999 [facility] Rx#: [id number] Oral 600 Other: Voiding Method Toilet # Voids 5 1 3 - Exam General: Sitting up in bed, NAD. Vitals reviewed Eyes: PERRL, EOMI, conjunctiva normal HENT: normocephalic, mucus membranes moist Neck: supple, no JVD Lungs: normal respiratory effort. Essentially clear, bilateral bases diminished. CV: Regular rate and rhythm, no murmur. Peripheral pulses 2+ Abdomen: soft, nondistended, no organomegaly, positive bowel sounds Skin: warm and dry. Neuro: A&Ox3, normal mood and affect - Labs CBC & Chem 7: 06/26/20 05:17 06/26/20 05:17 Labs: Abnormal Lab Results - Last 24 Hours (Table) 06/26/20 06/26/20 Range/Units 05:17 05:17 Hct 46.1 H (34.0-46.0) % BUN/Creatinine Ratio 30.00 H (12.00-20.00) Ratio Total Protein 5.9 L (6.2-8.2) g/dL Microbiology - Last 24 Hours (Table) 06/23/20 13:41 Blood Culture - Preliminary Blood No Growth after 48 hours Assessment and Plan Assessment: Sepsis secondary to acute Covid 19,Viral pneumonia Acute hypoxic respiratory failure secondary to the above, resolved Left lower lobe pulmonary nodules, being followed outpatient History of Thyroid cancer with thyroidectomy Osteoarthritis Hypothyroidism Hypertension Hyperlipidemia Plan: Continue on current medication regime ,monitoring and symptomatic treatment. Continue on Remdesivir, zinc, Protonix, vitamin C, Decadron. Maintain supportive care, close monitoring overnight. Discharge planning in progress for tomorrow. The impression and plan of care has been dictated as directed. : I performed a history and examination of this patient, discussed the same with the dictator. I agree with the dictator's note ,documented as a scribe. Any additional findings or plans will be noted.
--- NOTE | 2020-06-26 14:58 | P.PN ---
Subjective Progress Note Date: 06/26/20 Principal diagnosis: Covid 19 related infection 75-year-old here patient with a previous history of thyroid cancer post- thyroidectomy was being also evaluated for left lower lobe pulmonary nodule. As the patient was being investigated she became sick and the patient started hav ing sweats, chills, fever, body aches, and vague lower abdominal pain. Over the past 24-48 hours she started experiencing some chest aching, worsening dyspnea and cough and for that reason the patient was brought into the hospital. Noted the patient was confirmed to have COVID 19 infection approximately 6 days ago. White cell count is at 5.4. He will was 14.7. Correlation profile is within no rmal. D-dimer is at 0.34. Renal function is stable. C-reactive protein at 12.6. Chest x-ray showing a limited left basilar infiltrate along with some cardiomegaly. Pulse ox on room air is around 95-96%. She has a temperature of 101.5. The patient is seen today 06/24/2020 in follow-up on the regular medical floor. She is currently resting quite comfortably in bed. Awake and alert in no acute distress. She is maintaining O2 saturations in the 90s on room air. She's afebrile. Hemodynamically stable. White count 2.7. Hemoglobin 14.4. D-dimer 0.3. Sodium 141. Potassium 4.7. Creatinine 0.6. Glucose 126. C-reactive protein 2.7. This is day 2 of Remdesivir. She remains on zinc, Protonix, vitamin C, Lovenox, dexamethasone, melatonin. The patient is seen today 06/25/2020 in follow-up on the regular medical floor. She is awake and alert in no acute distress. Resting quite comfortably in bed. Denies any worsening shortness of breath, cough or congestion. Maintaining good O2 saturations in the mid 90s on room air. She's afebrile. Hemodynamically stable. Blood culture reveals no growth to date. White count 4.6. Hemoglobin 14.6. Lymphocytes 1.2. D-dimer 0.29. Sodium 144. Potassium 4.2. Creatinine 0.6. This is day 3 of REM to severe. She remains on zinc, Protonix, vitamin C, Lovenox, dexamethasone, melatonin. On 06/26/2020 patient seen in follow-up on selective care unit. She is feeling better, breathing easier, room air pulse ox is 95-96%, she is afebrile, she is on day 4 of Remdesivir. Inflammatory markers have improved, her urinalysis has shown no growth, influenza screen was negative. Blood culture was negative. She says stable vitals overnight, Objective - Vital Signs Vital signs: Vital Signs Temp 98.3 F 06/26/20 14:01 Pulse 89 06/26/20 14:01 Resp 17 06/26/20 14:01 BP 144/64 06/26/20 14:01 Pulse Ox 95 06/26/20 14:01 Intake & Output 06/25/20 06/26/20 06/26/20 18:59 06:59 18:59 Intake Total 850 Balance 850 Intake: Intake, IV Titration 250 Amount Remdesivir (Eua) 100 mg 250 In Sodium Chloride 0.9% 250 ml @ 250 mls/hr IVPB DAILY@1999 [facility] Rx#: [id number] Oral 600 Other: Voiding Method Toilet # Voids 5 1 3 - Exam GENERAL EXAM: Alert, very pleasant, 75-year-old female, on room air with a pulse ox of 95% comfortable in no apparent distress. HEAD: Normocephalic/atraumatic. EYES: Normal reaction of pupils, equal size. Conjunctiva pink, sclera white. NOSE: Clear with pink turbinates. THROAT: No erythema or exudates. NECK: No masses, no JVD, no thyroid enlargement, no adenopathy. CHEST: No chest wall deformity. Symmetrical expansion. LUNGS: Equal air entry with no crackles, wheeze, rhonchi or dullness. CVS: Regular rate and rhythm, normal S1 and S2, no gallops, no murmurs, no rubs ABDOMEN: Soft, nontender. No hepatosplenomegaly, normal bowel sounds, no guarding or rigidity. EXTREMITIES: No clubbing, no edema, no cyanosis, 2+ pulses and upper and lower extremities. MUSCULOSKELETAL: Muscle strength and tone normal. SPINE: No scoliosis or deformity SKIN: No rashes CENTRAL NERVOUS SYSTEM: Alert and oriented -3. No focal deficits, tone is normal in all 4 extremities. PSYCHIATRIC: Alert and oriented -3. Appropriate affect. Intact judgment and insight. - Labs CBC & Chem 7: 06/26/20 05:17 06/26/20 05:17 Labs: Abnormal Lab Results - Last 24 Hours (Table) 06/26/20 06/26/20 Range/Units 05:17 05:17 Hct 46.1 H (34.0-46.0) % BUN/Creatinine Ratio 30.00 H (12.00-20.00) Ratio Total Protein 5.9 L (6.2-8.2) g/dL Microbiology - Last 24 Hours (Table) 06/23/20 13:41 Blood Culture - Preliminary Blood No Growth after 48 hours Assessment and Plan Plan: Assessment: 1 acute Covid 19 pneumonia with secondary dyspnea cough 2 acute hypoxic respiratory failure current pulse ox is around 94-95% 3 acute febrile illness secondary to above 4 hypothyroidism 5 hypertension 6 hyperlipidemia 7 osteoarthritis 8 thyroid cancer and previous thyroidectomy 9 left lower lobe pulmonary nodules, under investigation for metastatic disease Plan: Patient will receive 4th dose of Remdesivir, she is doing better, feeling better, afebrile, and temperature markers are improving, continue with Decadron, Pepcid, Lovenox, increase activity as tolerated, if continues to improve and was she completes her Remdesivir, patient can be considered for discharge home in next 24 hours I performed a history & physical examination of the patient and discussed their management with my nurse practitioner, La Bridges. I reviewed the nurse khanh manrique's note and agree with the documented findings and plan of care. Lung sounds are positive for diminished breath sounds The findings and the impression was discussed with the patient. I attest to the documentation by the nurse practitioner. Time with Patient: Less than 30
[2020-06-26] MEDS ORDERED: MELATONIN 5 MG TABLET PO SCH (21:00)
[2020-06-26] MEDS: REMDESIVIR (EUA) 100 MG in SODIUM CHLORIDE 0.9% 250 ML IVPB SCH (21:14)
[2020-06-26] MEDS: ATORVASTATIN 20 MG TAB PO SCH (21:14)
[2020-06-27] MEDS: LEVOTHYROXINE 100 MCG TAB PO SCH (06:04)
[2020-06-27] MEDS: ASCORBIC ACID 500 MG TAB PO SCH (08:07)
[2020-06-27] MEDS: ZINC SULFATE 220 MG CAP PO SCH (08:07)
[2020-06-27] MEDS: dexAMETHasone 2 MG TAB PO SCH (08:07)
[2020-06-27] MEDS: ENOXAPARIN 40 MG/0.4 ML SYRINGE SQ SCH (08:07)
[2020-06-27] MEDS: PANTOPRAZOLE 40 MG TABLET PO SCH (08:07)
[2020-06-27 08:11] VITALS: RESP 17; TEMP 98.2
--- NOTE | 2020-06-27 12:48 | P.PN ---
Subjective Progress Note Date: 06/27/20 Principal diagnosis: CoVID 19 pneumonitis 75-year-old here patient with a previous history of thyroid cancer post- thyroidectomy was being also evaluated for left lower lobe pulmonary nodule. As the patient was being investigated she became sick and the patient started having sweats, chills, fever, body aches, and vague lower abdominal pain. Over the past 24-48 hours she started experiencing some chest aching, worsening dyspnea and cough and for that reason the patient was brought into the hospital. Noted the patient was confirmed to have COVID 19 infection approximately 6 days ago. White cell count is at 5.4. He will was 14.7. Correlation profile is within normal. D-dimer is at 0.34. Renal function is stable. C-reactive protein at 12.6. Chest x-ray showing a limited left basilar infiltrate along with some cardiomegaly. Pulse ox on room air is around 95-96%. She has a temperature of 101.5. The patient is seen today 06/24/2020 in follow-up on the regular medical floor. She is currently resting quite comfortably in bed. Awake and alert in no acute distress. She is maintaining O2 saturations in the 90s on room air. She's afebrile. Hemodynamically stable. White count 2.7. Hemoglobin 14.4. D-dimer 0.3. Sodium 141. Potassium 4.7. Creatinine 0.6. Glucose 126. C-reactive protein 2.7. This is day 2 of Remdesivir. She remains on zinc, Protonix, vitamin C, Lovenox, dexamethasone, melatonin. The patient is seen today 06/25/2020 in follow-up on the regular medical floor. She is awake and alert in no acute distress. Resting quite comfortably in bed. Denies any worsening shortness of breath, cough or congestion. Maintaining good O2 saturations in the mid 90s on room air. She's afebrile. Hemodynamically stable. Blood culture reveals no growth to date. White count 4.6. Hemoglobin 14.6. Lymphocytes 1.2. D-dimer 0.29. Sodium 144. Potassium 4.2. Creatinine 0.6. This is day 3 of REM to severe. She remains on zinc, Protonix, vitamin C, Lovenox, dexamethasone, melatonin. The patient is seen today 06/27/2020 in follow-up on the regular medical floor. She is resting comfortably in bed. Awake and alert in no acute distress. No worsening shortness of breath, cough or congestion. No fever, chills or night sweats. Continues to maintain good O2 saturations in the 90s on room air. This is day 5 of Remdesivir. Objective - Vital Signs Vital signs: Vital Signs Temp 98.2 F 06/27/20 06:54 Pulse 71 06/27/20 06:54 Resp 17 06/27/20 06:54 BP 159/79 06/27/20 06:54 Pulse Ox 93 L 06/27/20 06:54 Intake & Output 06/26/20 06/27/20 06/27/20 18:59 06:59 18:59 Intake Total 250 250 Balance 250 250 Intake: IV 250 Remdesivir (Eua) 100 mg 250 In Sodium Chloride 0.9% 250 ml @ 250 mls/hr IVPB DAILY@1999 [facility] Rx#: [id number] Intake, IV Titration 250 Amount Remdesivir (Eua) 100 mg 250 In Sodium Chloride 0.9% 250 ml @ 250 mls/hr IVPB DAILY@1999 [facility] Rx#: [id number] Other: Voiding Method Toilet # Voids 3 1 - Exam GENERAL EXAM: Alert, active, very pleasant 75-year-old female patient, on room air, comfortable in no apparent distress. HEAD: Normocephalic. EYES: Normal reaction of pupils, equal size. NOSE: Clear with pink turbinates. THROAT: No erythema or exudates. NECK: No masses, no JVD. CHEST: No chest wall deformity. LUNGS: Equal air entry with crackles in the left base, diminished CVS: S1 and S2 normal with no audible murmur, regular rhythm. ABDOMEN: No hepatosplenomegaly, normal bowel sounds, no guarding or rigidity. SPINE: No scoliosis or deformity SKIN: No rashes CENTRAL NERVOUS SYSTEM: No focal deficits, tone is normal in all 4 extremities. EXTREMITIES: There is no peripheral edema. No clubbing, no cyanosis. Peripheral pulses are intact. - Labs CBC & Chem 7: 06/26/20 05:17 06/26/20 05:17 Labs: Microbiology - Last 24 Hours (Table) 06/23/20 13:41 Blood Culture - Preliminary Blood No Growth after 72 hours Assessment and Plan Assessment: 1 acute Covid 19 pneumonia with secondary dyspnea cough 2 acute hypoxic respiratory failure recovered and currently maintaining O2 saturations in the 90s on room air 3 acute febrile illness secondary to above, recovered 4 hypothyroidism 5 hypertension 6 hyperlipidemia 7 osteoarthritis 8 thyroid cancer and previous thyroidectomy 9 left lower lobe pulmonary nodules, under investigation for metastatic disease Plan The patient was seen and evaluated by Dr. Pool This is day 5 of Remdesivir Cleared for discharge from the pulmonary standpoint I, the cosigning physician, performed a history & physical examination of the patient. Lungs sounds with crackles in the left base, diminished. Maintaining good O2 saturations in the 90s on room air. I discussed the assessment and plan of care with my nurse practitioner, Yvette Hayes. I attest to the above note as di ctated by her.
[2020-06-27] MEDS: REMDESIVIR (EUA) 100 MG in SODIUM CHLORIDE 0.9% 250 ML IVPB SCH (14:59)
[2020-06-27 15:24] VITALS: BP 143/74; PULSE 88
== END 2020-06-27 16:13 | disposition home or self-care (01) | DRG 871 ==
LOC: EC 12:17 → 4SSUR 14:52
PROVIDERS: ADMIT Family Medicine; ATTEND Family Medicine
DX: A41.89 Other specified sepsis (principal); U07.1 COVID-19; J12.89 Other viral pneumonia; J96.01 Acute respiratory failure with hypoxia; E89.0 Postprocedural hypothyroidism; E78.5 Hyperlipidemia, unspecified; I73.9 Peripheral vascular disease, unspecified; N18.9 Chronic kidney disease, unspecified; I13.10 Hypertensive heart and chronic kidney disease without heart failure, with stage 1 through stage 4 chronic kidney disease, or unspecified chronic kidney disease; M19.90 Unspecified osteoarthritis, unspecified site; Z85.850 Personal history of malignant neoplasm of thyroid; Z79.890 Hormone replacement therapy; Z79.899 Other long term (current) drug therapy; Z86.73 Personal history of transient ischemic attack (TIA), and cerebral infarction without residual deficits; Z90.710 Acquired absence of both cervix and uterus; Z90.49 Acquired absence of other specified parts of digestive tract; R91.8 Other nonspecific abnormal finding of lung field; Z98.42 Cataract extraction status, left eye; Z98.41 Cataract extraction status, right eye; Z96.1 Presence of intraocular lens; K21.9 Gastro-esophageal reflux disease without esophagitis; Z91.040 Latex allergy status; Z95.5 Presence of coronary angioplasty implant and graft
CPT/HCPCS: 36415; 71045; 80053; 81003; 82550; 82728; 83605; 83615; 83735; 84145; 85025; 85379; 85384; 85610; 85730; 86140; 87040; 87502; 93005; 99284